=== PATIENT | female | born 1935 | race Caucasian/White ===

== ENCOUNTER 2017-08-05 06:29 | Inpatient (IN) | payer MEDICARE, SELFPAY ==
[2017-07-19 09:26] VITALS: BP 123/77; PULSE 86; RESP 17; TEMP 36.4; O2SAT 96; BMI 28.5
--- NOTE | 2017-07-19 09:49 | SDCEKG_ITS ---
Test Reason : Blood Pressure : / mmHG Vent. Rate : 063 BPM Atrial Rate : 063 BPM P-R Int : 142 ms QRS Dur : 072 ms QT Int : 394 ms P-R-T Axes : 000 002 040 degrees QTc Int : 403 ms Normal sinus rhythm Normal ECG Confirmed by SUZIE APN, SHUN ([id number]), newspaper photo editor YASMIN MOTLEY ([id number]) on 07/22/2017 12:58:14 PM Referred By: [facility] Confirmed By:SHUN LARSEN MD
[2017-07-19 10:28] LABS: Hemoglobin 14.7 g/dl (12.0-15.0); Mean Corp Hgb Conc 32.7 g/gl (32-36); Mean Corpuscular Hgb 31.2 pg (27.0-32.0); Mean Corpuscular Volume 95.5 fL (81-99); Mean Platelet Vol. 9.5 fl (6.2-12.0); Platelet Count 274 K/mm3 (150-450); RBC Distribution Width CV 13.5 % (11.6-14.6); Red Blood Count 4.71 M/mm3 (4.2-5.4); White Blood Count 7.8 K/mm3 (4.4-11.0)
[2017-07-19 10:32] LABS: Scan Indicated on CBC? Y/N NO
[2017-07-19 10:33] LABS: Prothrombin Time (Protime)PT. 12.7 SECONDS (11.7-14.9)
[2017-07-19 10:34] LABS: Partial Thromboplast Time 39.5 Seconds (24.1-36.2)
[2017-07-19 10:55] LABS: AST(SGOT) 18 U/L (15-37); Alanine Aminotransfer ALT/SGPT 25 U/L (12-78); Albumin, Serum 3.7 g/dL (3.4-5.0); Alkaline Phosphatase 86 U/L (45-117); Anion Gap 4 (5-15); BUN 22 mg/dL (7-18); BUN/Creat Ratio 25.9 RATIO (10-20); Bilirubin, Direct 0.08 mg/dL (0.00-0.30); Calcium,Total 9.3 mg/dL (8.5-10.1); Chloride 106 mmol/L (98-107); Creatinine, Serum 0.85 mg/dL (0.55-1.02); EST Glomerular Filtration Rate 68 mL/min (>60); Est Glom Filt Rate - Afr Amer 83 mL/min (>60); Estimated Creatinine Clearance 38.51 ml/min; Globulin 3.5 g/dL (2.2-4.2); Glucose 60 mg/dL (70-110); Potassium 4.6 mmol/L (3.5-5.1); Protein, Total 7.2 g/dL (6.4-8.2); Sodium Level 140 mmol/L (136-145)
[2017-08-05] VITALS (11 sets, daily range): BP systolic 92–140; BP diastolic 58–81; PULSE 66–96; RESP 16–18; TEMP 36.1–37; O2SAT 92–99; BMI 28.5
[2017-08-05] MEDS: Celecoxib 200 MG Capsule 400 MG PO (07:28)
[2017-08-05] MEDS: Acetaminophen 500 MG Tablet 1000 MG PO ×3 (07:28→22:31)
[2017-08-05] MEDS: oxyCODONE HCl Cr 10 MG Tablet PO (07:28)
--- NOTE | 2017-08-05 09:13 | PCM.OPRPT ---
Report of Operation Date of Procedure: 08/05/17 Pre-Operative Diagnosis: Severe end-stage osteoarthritis right hip Post-Operative Diagnosis: Severe end-stage osteoarthritis right hip Surgery/Procedure Performed:: Total hip arthroplasty right using posterior approach Description of Surgical Findings:: Eburnation of bone, periarticular osteophytes consistent with end-stage osteoarthritis affiliate marketing coordinator: Nav Craig Type of Anesthesia:: Spinal Anesthesiologist: Jorden Perez Special Medications: TXA Specimen's removed: Bone and soft tissue Estimated Blood Loss (mL): 150 Fluids Replaced: See anesthesia report Description of Procedure: Implants: Accolade 2 127? valgus size 3 press-fit, 50 mm acetabulum with appropriate size MDM Surgical indications: Patient has severe end-stage osteoarthritic changes in the right hip. They have failed conservative measures including activity modification, anti-inflammatories, use of assistive devices. This to the point where the pain affects their ability to enjoy life and complete activities of daily living without discomfort. Patient has elected to undergo the above procedure Procedure description: The patient was greeted in the preoperative area the right hip was marked with surgical marker preoperative antibiotics administered. The patient was then taken to or suite in stable condition. Preoperative tranexamic acid was also utilized. Once the patient was placed in the supine position on the operating room table and once adequate anesthesia was obtained they were then placed in the lateral decubitus position with the surgical hip facing the field. All bony prominences were well-padded. A commercial hip position was utilized. The appropriate extremity was then prepped and draped in usual sterile fashion. Ioban was placed on the skin. Surgical timeout was performed and surgery was commenced. Standard posterior approach to the hip was then performed incision was planned and carried out with a #10 blade. Dissection was then carried length of the incision to the IT band which was split proximally and distally. A Charnley retractor was then placed for soft tissue retraction exposing the gluteus medius. The gluteus medius was then extremely poor condition therefore I decided to approach the hip posteriorly as opposed to the anterior lateral approach. The hip was then approached through a posterior approach and dislocated through a posterior capsulectomy. Severe eburnation of bone was noted periarticular osteophytes were identified consistent with severe end-stage osteoarthritis. A femoral osteotomy was then created approximately 1 fingerbreadth above the lesser trochanter. This was measured and placed on the back table. Once this was complete acetabular retractors were placed anteriorly and posteriorly and a 4 mm Steinmann pin was placed anterior superior aspect of the acetabulum for soft tissue retention. Labrum was then removed from the acetabulum exposing the entire cup of the acetabulum. Sequential reaming was then commenced and the acetabulum was medialized and sequentially widened in order to accommodate appropriate size cup. The acetabular cup was then impacted into position to the appropriate depth referencing approximately 30? inversion 45? of inclination. Excellent purchase was obtained. No screws were placed in the cup. MDM metal liner was then impacted into position. The locking mechanism was engaged and confirmed. Attention was then turned to the femoral preparation. The hip was placed in the 90/90 position and a lateralizing box osteotome was utilized. Femoral starting awl was used followed by sequential broaching to the appropriate size. Excellent purchase was obtained with the stem no stem subsidence and excellent rotational stability was confirmed. A calcar reamer was then used in the trial head neck was placed on the broach. The hip was then located and taken through full range of motion flexion internal and external rotation as well as extension. Excellent stability was noted no impingement was identified of the components and leg lengths appear to be appropriate. The hip was at this point dislocated and the trial femoral components were removed. The final femoral stem was then implanted and impacted to the appropriate depth. Again excellent purchase was obtained no stem subsidence or rotational instability was noted. The hip was once again trialed and confirmation of leg length and stability was performed. Soft tissue tension also appeared to be appropriate. At this point the hip was redislocated and the trunnion was cleaned and dried meticulously in the appropriate size femoral head was placed on the clean dry trunnion using a 12/14 Tucker taper. The hip was once again relocated and again taken through full range of motion. I did inject a cocktail of postoperative pain medication in the deep and superficial tissues. The wound was then copiously irrigated. Anatomic closure of the piriformis was performed with #1 Vicryl [id number] type fashion followed by closure of the IT band with #1 Vicryl 0 Vicryl was utilized in subcutaneous tissue and surgical skyler were placed in the skin. A well-padded nonadherent dressing was applied. Patient was taken to PACU in stable condition. No complications were identified. Will follow standard postop protocol for total hip arthroplasty. Patient must use assistive device for ambulation for approximately 6 weeks of the gluteal musculature heals. Physician print shop assistant was integral in all portions of this procedure. They assisted with positioning the patient, draping the extremity, holding retractors, closing the wound, and applying the dressing. This was all done under my direct supervision. The physician print shop assistant was essential for a successful, efficient surgery. - Complications none known - Admit VTE Documentation VTE Present on Admission: Yes VTE Mechan Device Prophylaxis: SCD's, Thigh High RONEN Hose VTE Pharm Prophylaxis ordered?: Yes
--- NOTE | 2017-08-05 09:16 | OP.PCM_ITS ---
Report of Operation Date of Procedure: 08/05/17 Pre-Operative Diagnosis: Severe end-stage osteoarthritis right hip Post-Operative Diagnosis: Severe end-stage osteoarthritis right hip Surgery/Procedure Performed:: Total hip arthroplasty right using posterior approach Description of Surgical Findings:: Eburnation of bone, periarticular osteophytes consistent with end-stage osteoarthritis service desk specialist: Nav Craig Type of Anesthesia:: Spinal Anesthesiologist: Jorden Perez Special Medications: TXA Specimen's removed: Bone and soft tissue Estimated Blood Loss (mL): 150 Fluids Replaced: See anesthesia report Description of Procedure: Implants: Accolade 2 127? valgus size 3 press-fit, 50 mm acetabulum with appropriate size MDM Surgical indications: Patient has severe end-stage osteoarthritic changes in the right hip. They have failed conservative measures including activity modification, anti-inflammatories, use of assistive devices. This to the point where the pain affects their ability to enjoy life and complete activities of daily living without discomfort. Patient has elected to undergo the above procedure Procedure description: The patient was greeted in the preoperative area the right hip was marked with surgical marker preoperative antibiotics administered. The patient was then taken to or suite in stable condition. Preoperative tranexamic acid was also utilized. Once the patient was placed in the supine position on the operating room table and once adequate anesthesia was obtained they were then placed in the lateral decubitus position with the surgical hip facing the field. All bony prominences were well-padded. A commercial hip position was utilized. The appropriate extremity was then prepped and draped in usual sterile fashion. Ioban was placed on the skin. Surgical timeout was performed and surgery was commenced. Standard posterior approach to the hip was then performed incision was planned and carried out with a #10 blade. Dissection was then carried length of the incision to the IT band which was split proximally and distally. A Charnley retractor was then placed for soft tissue retraction exposing the gluteus medius. The gluteus medius was then extremely poor condition therefore I decided to approach the hip posteriorly as opposed to the anterior lateral approach. The hip was then approached through a posterior approach and dislocated through a posterior capsulectomy. Severe eburnation of bone was noted periarticular osteophytes were identified consistent with severe end-stage osteoarthritis. A femoral osteotomy was then created approximately 1 fingerbreadth above the lesser trochanter. This was measured and placed on the back table. Once this was complete acetabular retractors were placed anteriorly and posteriorly and a 4 mm Steinmann pin was placed anterior superior aspect of the acetabulum for soft tissue retention. Labrum was then removed from the acetabulum exposing the entire cup of the acetabulum. Sequential reaming was then commenced and the acetabulum was medialized and sequentially widened in order to accommodate appropriate size cup. The acetabular cup was then impacted into position to the appropriate depth referencing approximately 30? inversion 45? of inclination. Excellent purchase was obtained. No screws were placed in the cup. MDM metal liner was then impacted into position. The locking mechanism was engaged and confirmed. Attention was then turned to the femoral preparation. The hip was placed in the 90/90 position and a lateralizing box osteotome was utilized. Femoral starting awl was used followed by sequential broaching to the appropriate size. Excellent purchase was obtained with the stem no stem subsidence and excellent rotational stability was confirmed. A calcar reamer was then used in the trial head neck was placed on the broach. The hip was then located and taken through full range of motion flexion internal and external rotation as well as extension. Excellent stability was noted no impingement was identified of the components and leg lengths appear to be appropriate. The hip was at this point dislocated and the trial femoral components were removed. The final femoral stem was then implanted and impacted to the appropriate depth. Again excellent purchase was obtained no stem subsidence or rotational instability was noted. The hip was once again trialed and confirmation of leg length and stability was performed. Soft tissue tension also appeared to be appropriate. At this point the hip was redislocated and the trunnion was cleaned and dried meticulously in the appropriate size femoral head was placed on the clean dry trunnion using a 12/14 Tucker taper. The hip was once again relocated and again taken through full range of motion. I did inject a cocktail of postoperative pain medication in the deep and superficial tissues. The wound was then copiously irrigated. Anatomic closure of the piriformis was performed with #1 Vicryl [id number] type fashion followed by closure of the IT band with #1 Vicryl 0 Vicryl was utilized in subcutaneous tissue and surgical skyler were placed in the skin. A well-padded nonadherent dressing was applied. Patient was taken to PACU in stable condition. No complications were identified. Will follow standard postop protocol for total hip arthroplasty. Patient must use assistive device for ambulation for approximately 6 weeks of the gluteal musculature heals. Physician clinical assistant professor was integral in all portions of this procedure. They assisted with positioning the patient, draping the extremity, holding retractors , closing the wound, and applying the dressing. This was all done under my direct supervision. The physician clinical assistant professor was essential for a successful, efficient surgery. - Complications none known - Admit VTE Documentation VTE Present on Admission: Yes VTE Mechan Device Prophylaxis: SCD's, Thigh High RONEN Hose VTE Pharm Prophylaxis ordered?: Yes
[2017-08-05] MEDS: Cefazolin 2 GM in 0.9% Normal Saline 100 ML IV (09:17)
--- NOTE | 2017-08-05 11:00 | RAD_ITS ---
STUDY: X-RAY - PELVIS AND RIGHT HIP REASON FOR EXAM: Female, 82 years old. Total hip replacement TECHNIQUE: Radiological exam, hip, unilateral, with pelvis when performed; 1 view COMPARISON: None. FINDINGS: The patient is status post right total hip replacement. There is good alignment. Postoperative soft tissue changes. RAD/Hip 1 view with Pelvis IMPRESSION: Status post right total hip replacement. There is good alignment. Postoperative soft tissue changes. Electronically Signed: Rupesh Benson MD at 11:27 EST Tel [phone], Service support ,
[2017-08-05] MEDS: Lactated Ringers 1,000 ML 125 ML IV ×2 (11:15→20:27)
[2017-08-05] MEDS: Aspirin 325 MG Tablet PO (17:56)
[2017-08-05] MEDS: Cefazolin 1 GM/50 ML BAG IV (17:58)
[2017-08-05] MEDS: Senna/Docusate Sodium 1 Tablet 2 TABLET PO (22:31)
[2017-08-05] MEDS: Atorvastatin Calcium 10 MG Tablet 5 MG PO (22:32)
[2017-08-05] MEDS: Latanoprost 0.005% 1 Bottle 1 DRP EACH EYE (22:33)
[2017-08-06] MEDS: Cefazolin 1 GM/50 ML BAG IV (00:57)
[2017-08-06 03:00] VITALS: BP 93/59; PULSE 77; RESP 16; TEMP 36.9; O2SAT 96
[2017-08-06] MEDS: Lactated Ringers 1,000 ML 125 ML IV (05:45)
[2017-08-06] MEDS: Acetaminophen 500 MG Tablet 1000 MG PO ×3 (06:41→23:02)
[2017-08-06 07:02] LABS: Hematocrit 34.6 % (37-47); Hemoglobin 11.4 g/dl (12.0-15.0); Mean Corp Hgb Conc 32.9 g/gl (32-36); Mean Corpuscular Hgb 31.6 pg (27.0-32.0); Mean Corpuscular Volume 95.8 fL (81-99); Mean Platelet Vol. 9.6 fl (6.2-12.0); Platelet Count 240 K/mm3 (150-450); RBC Distribution Width CV 13.6 % (11.6-14.6); RBC Distribution Width SD 45.5 fl (35.1-43.9); Red Blood Count 3.61 M/mm3 (4.2-5.4)
[2017-08-06 07:09] LABS: Scan Indicated on CBC? Y/N NO
[2017-08-06 07:28] LABS: Anion Gap 8 (5-15); BUN 16 mg/dL (7-18); BUN/Creat Ratio 24.5 RATIO (10-20); Calcium,Total 8.3 mg/dL (8.5-10.1); Chloride 108 mmol/L (98-107); Creatinine, Serum 0.65 mg/dL (0.55-1.02); EST Glomerular Filtration Rate 92 mL/min (>60); Est Glom Filt Rate - Afr Amer 112 mL/min (>60); Estimated Creatinine Clearance 32.73 ml/min; Glucose 111 mg/dL (70-110); Sodium Level 144 mmol/L (136-145)
[2017-08-06] MEDS: Aspirin 325 MG Tablet PO ×2 (07:38→17:22)
[2017-08-06] MEDS: Calcium Carb/Vitamin D 1 TABLET Tablet PO (07:39)
--- NOTE | 2017-08-06 07:54 | PCM.PN.ORT ---
Subjective: Patient sitting at bedside eating breakfast, pain well-managed. Patient feels she is doing very well. No complaints, denies chest pain, shortness breath, calf pain, nausea vomiting. Objective: Dressing is clean dry intact. Vital signs labs within normal limits. Patient is afebrile, neurovascular is intact. Negative signs and symptoms of DVT - Physical Exam General: Alert, Oriented x3, Cooperative HEENT: PERRLA Oral: Moist Mucosa Neurological: Cranial nerves II-XII grossly intact Psych/Mental Status: Normal Affect, Alert and oriented to time, place, person, mood and affect Vital Signs Temp Pulse Resp BP Pulse Ox 98.4 F 77 16 93/59 L 96 08/06/17 03:00 08/06/17 03:00 08/06/17 03:00 08/06/17 03:00 08/06/17 03:00 Oxygen Delivery Method Room Air Weight: 68.6 kg Body Mass Index (BMI) 28.5 Intake and Output for Last 24 Hours 08/04/17 08/05/17 08/06/17 23:59 23:59 23:59 Intake Total 3443 / 3443 2239 / 2239 Balance 3443 / 3443 2239 / 2239 Laboratory Tests Past 24 Hrs 08/06/17 08/06/17 06:28 06:28 WBC 12.0 H RBC 3.61 L Hgb 11.4 L Hct 34.6 L MCV 95.8 MCH 31.6 MCHC 32.9 RDW 13.6 RDW Differential 45.5 H Plt Count 240 MPV 9.6 Sodium 144 Potassium 4.0 Chloride 108 H Carbon Dioxide 28.0 Anion Gap 8 BUN 16 Creatinine 0.65 Estim Creat Clear Calc 32.73 Est GFR (MDRD) Af Amer 112 Est GFR (MDRD) Non-Af 92 BUN/Creatinine Ratio 24.5 H Glucose 111 H Calcium 8.3 L Assessment/Plan Status post right total hip arthroplasty Plan 1. Continue all pain medications as prescribed 2. Begin physical therapy today, weight-bear as tolerated with walker 3. Aspirin 325 mg 1 p.o. every 12 hours ?30 days for postop DVT prophylaxis 4. Encourage incentive spirometry 5. Possible discharge home tomorrow
[2017-08-06 08:02] VITALS: BP 95/58; PULSE 79; RESP 16; TEMP 36.4; O2SAT 97
[2017-08-06] MEDS: Famotidine 20 MG Tablet PO (10:23)
[2017-08-06] MEDS: Psyllium 1 PACKET PO (10:23)
[2017-08-06 14:27] VITALS: BP 105/61; PULSE 68; RESP 18; TEMP 36.7; O2SAT 94
[2017-08-06] MEDS: oxyCODONE 5 MG Tablet PO (14:34)
--- NOTE | 2017-08-06 15:55 | CASEMGMT ---
SHANNAN RUVALCABA Face to Face with patient for initial transition planning/care coordination assessment. SHANNAN RUVALCABA introduced self and role at [facility]. Patient lying in bed, alert and oriented. Patient willing to participate in assessment and is able to answer all questions appropriately. Care providers, pharmacy, and demographics verified. See link attached. Patient wishes to discharge home with outpatient set up at [facility]. Patient states her and daughter will be providing transportation. Patient states she has no further needs or concerns at this time. CM to follow for discharge planning needs that may arise. Disposition Plan: Patient to discharge home with outpatient therapy, family support, and follow-up plans and place.
[2017-08-06 17:28] VITALS: BP 104/62; PULSE 74; RESP 16; TEMP 36.6; O2SAT 97
[2017-08-06 20:42] VITALS: BP 114/61; PULSE 72; RESP 16; TEMP 36.9; O2SAT 98
[2017-08-06] MEDS: Latanoprost 0.005% 1 Bottle 1 DRP EACH EYE (23:01)
[2017-08-06] MEDS: Senna/Docusate Sodium 1 Tablet 2 TABLET PO (23:01)
[2017-08-06] MEDS: Atorvastatin Calcium 10 MG Tablet 5 MG PO (23:02)
[2017-08-07 03:11] VITALS: BP 104/59; PULSE 90; RESP 14; TEMP 37.2; O2SAT 95
[2017-08-07 06:24] LABS: Hematocrit 36.7 % (37-47); Hemoglobin 11.9 g/dl (12.0-15.0); Mean Corp Hgb Conc 32.4 g/gl (32-36); Mean Corpuscular Hgb 31.6 pg (27.0-32.0); Mean Corpuscular Volume 97.3 fL (81-99); Mean Platelet Vol. 9.8 fl (6.2-12.0); Platelet Count 230 K/mm3 (150-450); RBC Distribution Width SD 47.8 fl (35.1-43.9); Red Blood Count 3.77 M/mm3 (4.2-5.4); White Blood Count 9.6 K/mm3 (4.4-11.0)
[2017-08-07] MEDS: Acetaminophen 500 MG Tablet 1000 MG PO ×2 (06:28→13:24)
[2017-08-07 06:30] LABS: Scan Indicated on CBC? Y/N NO
[2017-08-07] MEDS: oxyCODONE 5 MG Tablet PO ×2 (07:36→13:23)
[2017-08-07] MEDS: Aspirin 325 MG Tablet PO (07:37)
[2017-08-07] MEDS: Calcium Carb/Vitamin D 1 TABLET Tablet PO (07:37)
[2017-08-07 07:40] VITALS: BP 127/80; PULSE 78; RESP 16; TEMP 36.9; O2SAT 96
[2017-08-07] MEDS: Psyllium 1 PACKET PO (10:13)
[2017-08-07] MEDS: Famotidine 20 MG Tablet PO (10:14)
--- NOTE | 2017-08-07 12:31 | PN.ORTHO_ITS ---
Subjective: Patient sitting at lunch, her at her side. Patient states she is doing very well, pain well-managed. Ready for discharge home. No other complaints. Denies chest pain, shortness breath, calf pain, nausea vomiting. Objective: Dressing is clean dry intact, vital signs labs within normal limits. Patient is afebrile, neurovascular intact. Negative signs and symptoms of DVT. - Physical Exam General: Alert, Oriented x3, Cooperative HEENT: PERRLA Neurological: Cranial nerves II-XII grossly intact Psych/Mental Status: Normal Affect, Alert and oriented to time, place, person, mood and affect Vital Signs Temp Pulse Resp BP Pulse Ox 98.4 F 78 16 127/80 H 96 08/07/17 07:40 08/07/17 07:40 08/07/17 07:40 08/07/17 07:40 08/07/17 07:40 Oxygen Delivery Method Room Air Weight: 68.6 kg Body Mass Index (BMI) 28.5 Intake and Output for Last 24 Hours 08/05/17 08/06/17 08/07/17 23:59 23:59 23:59 Intake Total 3443 / 3443 3114 / 3114 500 / 500 Balance 3443 / 3443 3114 / 3114 500 / 500 Laboratory Tests Past 24 Hrs 08/07/17 05:34 WBC 9.6 RBC 3.77 L Hgb 11.9 L Hct 36.7 L MCV 97.3 MCH 31.6 MCHC 32.4 RDW 14.0 RDW Differential 47.8 H Plt Count 230 MPV 9.8 Assessment/Plan Status post right total hip arthroplasty Plan 1. Continue all pain medications as prescribed 2. Continue physical therapy at [facility] [place] , weight-bear as tolerated with walker 3. Aspirin 325 mg 1 p.o. every 12 hours ?30 days for postop DVT prophylaxis 4. Follow-up as scheduled, see pink sheet 5. Discharge home today
--- NOTE | 2017-08-07 12:48 | PCM.DC.THR ---
Discharge Diet: No Restrictions Discharge Activity: May Drive, May Shower, Use Walker May shower in (days): 1 - only if incision is dry and without drainage. Do NOT soak/submerge in tub/pool/barron/stream/hot tub. May resume sexual activity in: No Restrictions Ice area for (Minutes): 20 - every hour while awake Weight Bearing Status: Weight bearing as tolerated Lifting Restrictions: 20 pounds Elevate: Operative Extremity Call your doctor if your incision/area has: Continuous Slow Oozing, Sudden Increased Bleeding, Increased Pain/ Swelling, Increased Redness, Foul Smelling Discharge Call your doctor if you observe: Fever of 101 or Higher, Inability to urinate, Inability to have a bowel movement, Shortness of breath, Fainting spells, Chest pain, Increased palpitations (irregular heartbeat), Calf discomfort, Uncontrolled pain Change Dressing in (Days):: 0 - Change daily and as needed. Remove Dressing in (days):: 9 Cleanse incision/area with: Soap & Water Allergies/Adverse Reactions: Allergies hydrocodone [From Vicodin] Adverse Reaction (Verified 07/19/17 09:15) Vomiting Medications to take at Discharge Antiarthritic Combination No.2 [Glucosamine-Chondroitin] 900 mg PO DAILY 07/19/17 Bimatoprost [Lumigan Opthalmic] 1 drop EACH EYE QHS 07/19/17 Calcium Carbonate/Vitamin D3 [Calcium 250-Vit D3 125 Tablet] 1 each PO DAILY 07/19/17 Psyllium Husk [Metamucil] 660 gm PO DAILY 07/19/17 Simvastatin 5 mg PO QHS 07/19/17 Acetaminophen [Tylenol] 1,000 mg PO Q8 tablet 08/07/17 Aspirin 325 mg PO BIDCM tablet 08/07/17 Oxycodone [Oxyir] 5 - 10 mg PO Q4H PRN PRN 5 Days #60 tab 08/07/17 The following prescriptions were given: Oxycodone [Oxyir] 5 - 10 mg PO Q4H PRN PRN 5 Days #60 tab PRN Reason: Mod-Severe Pain (-04/16) Primary Care Physician: Mechelle Head MD [Primary Care Provider] - Please Follow Up With: Madhav Driver, DO When: see pink sheet
[2017-08-07 13:16] VITALS: BP 128/69; PULSE 90; RESP 18; TEMP 37.2; O2SAT 95
== END 2017-08-07 14:38 | disposition home or self-care (01) | DRG 470 ==
PROVIDERS: Anesthesiology; Admitting Provider Orthopaedic Surgery; Family Provider Family Medicine; PCP Family Medicine; Visit Provider Orthopaedic Surgery
PROC: 0SR90JZ Replacement of Right Hip Joint with Synthetic Substitute, Open Approach (ICD-10-PCS; CPT 27130; principal; 2017-08-05 08:20)
DX: M16.11 Unilateral primary osteoarthritis, right hip (principal); M25.751 Osteophyte, right hip
CPT/HCPCS: 36415; 73501; 80048; 80076; 85027; 85610; 85730; 87081; 97110; 97116; 97162; 97165; 97530; 97535; J7120

== ENCOUNTER 2018-01-02 14:30 | Outpatient (RCR) | payer MEDICARE, SELFPAY ==
--- NOTE | 2017-12-06 14:50 | HP.PTEVAL_ITS ---
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 Date of Evaluation: 12/06/17 Physical Therapist: Fantasma Pinzon, PT, - Visit Plan Frequency: 2x /Week Duration: 4 Weeks Plan: S/P THR POSTERIOR APROACH Jul AND2 1/2 MONTHS OF PT. FOUCUS ON BALANCE TRAINING,PRE ;HIP/KNEE ,FUNCTIONAL STRENGTHENING - Subjective Subjective: This 82 y/o female presenst to physical therapy right GINO posterior approach on Aug 05 at [facility] done by DR Driver.Patient d/c 2 days later with FWW WBAT RLE. Patient started PT for about 2 1/2 months. Patient weaned to cane then no device. Patient concerns walking with limp ,weakness .Patient has limiations with outside yard work ,and housework tasks -cleaning. Denies parathesia/tingling .Patient doing steps aternating with rail.Patient sleeping okay. HOME SITUATION: 2 story home with 2 steps and 12 steps 2nd floor. SOCAIL : . VOCATION: - Objective POSTURE: mild foward posture. GAIT: ambulates with normal rimma mild decrease stance time right reciprocal pattern. NEURO: denies parathesia/ tingling,reflexes intact. BALANCE: good-. AROM: 90 degrees hip flexion ,abd 40 degrees,knee flexion 0-125 degrees. MMT: quads/hams 4/5,hip abd 3/5 right , ankle 4/5. STAIRS : ascend/desceend 12 steps with rail. SLS-POOR - Goals Goal 1:: Independant with high level of functional ex's Goal Time Frame: 4-6 Weeks Goal 2:: Ambulate with normal stance reciprocal pattern during gait. Goal Time Frame: 4-6 Weeks Goal 3:: Normal balance on level/unlevel surfaces Goal Time Frame: 4-6 Weeks Goal 4:: Patient to increase strength of right hipo 3+/5-4-/5 to improve function and gait Goal Time Frame: 4-6 Weeks Goal 5:: Patient ascend/descend 12 steps with no rail to carry laundry basket Goal Time Frame: 4-6 Weeks - Rehabilitation Potential Physical Therapy Diagnosis: Patient underwent s/p right THR Aug 05 with impairments of right THR with impairments steps with rail ,quality of gait with limp,balance and weakness right gluteus medius thus benifit from PT Rehabilitation Potential: Good - Anticipated Interventions Patient/Client Instruction: Educate patient on: Condition, Plan of Care For the Purpose of:: To decrease pain, To improve muscle performance and motor function, To improve ability to perform ADL's, To increase tolerance to activity /condition/position, To improve performance and independence with ADL's, To improve ability of physical actions for home/community/work/leisure, To improve health of tissue, To improve endurance, To improve balance, To improve safety with gait, To improve ability to perform tasks related to life management Therapeutic Exercise to Include: Strength training, Endurance training, Balance training, Flexibilty training, Gait and locomotor training For the Purpose of:: To decrease pain, To improve ability to perform ADL's, To increase tolerance to activity/condition/position, To improve ability of physical actions for home/community/work/leisure, To improve gait and locomotor functions, To improve health of tissue, To improve endurance, To improve balance , To improve ability to perform tasks related to life management Thank you for the opportunity to evaluate your patient. For Medicare and Medicare HMO plans, please review the plan of care and approve it. It will need to be FAXED BACK to us at [phone] for Medicare purposes. Please let me know if there are questions or concerns regarding this plan of care. Physician Signature: Date:
--- NOTE | 2018-01-02 16:28 | HP.PTDCSUM_ITS ---
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 Discharge Date: 01/02/18 Please see the following information for a summary of their discharge status. - Subjective Subjective: Pt denies pain prior to the session. Overall, she feels that she plateued and has not made much, if any, progress with this bout of therapy. 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 - Overall Improvement % Improvement: 50 - Objective Objective/Function: Pt has met 5/5 PT goals. She does not report much, if any, improvement since starting this bout of physical therapy. She still has deficits with her hip abduction and extension weakness and hip flexor flexibility. Her HEP was updated today to address these impairments. She was given the option to continue coming to the facility through the wellness program. - Goals Goal 1:: Independant with high level of functional ex's Goal Progress: Goal Met Goal 2:: Ambulate with normal stance reciprocal pattern during gait. Goal Progress: Goal Met Goal 3:: Normal balance on level/unlevel surfaces Goal Progress: Goal Met Goal 4:: Patient to increase strength of right hipo 3+/5-4-/5 to improve function and gait Goal Progress: Goal Met Goal 5:: Patient ascend/descend 12 steps with no rail to carry laundry basket Goal Progress: Goal Met - Plan Plan: Discharge with HEP and plan to join a wellness program. - D/C Information Discharge Comments: Pt has met 5/5 PT goals. She does not report much, if any, improvement since starting this bout of physical therapy. She still has deficits with her hip abduction and extension weakness and hip flexor flexibility. Her HEP was updated today to address these impairments. She was given the option to continue coming to the facility through the wellness program. If there are questions or concerns regarding this patient's physical therapy, please feel free to call me at [phone]. Thank you for the referral of this patient. Sincerely, Fantasma Pinzon, PT,
== END 2018-01-02 19:00 | disposition home or self-care (01) ==
LOC: PT 14:30
PROVIDERS: Family Provider Family Medicine; PCP Family Medicine; Visit Provider Orthopaedic Surgery
DX: Z47.1 Aftercare following joint replacement surgery (principal); Z96.641 Presence of right artificial hip joint
CPT/HCPCS: 97110; 97162; 97530; G8978; G8979

== ENCOUNTER 2019-04-09 15:28 | Emergency (ER) | payer MEDICARE, SELFPAY ==
[2019-04-09 15:29] VITALS: BP 142/83; PULSE 90; RESP 16; TEMP 36.7; O2SAT 98; BMI 27.5
[2019-04-09 16:24] LABS: Absolute Lymphocyte Count 1.75 X10^3/uL (0.83-4.51); Basophil# 0.03 X10^3/uL; Basophil% 0.3 % (0-1); Eosinophil# 0.21 X10^3/uL; Eosinophils% 2.3 % (0-5); Hematocrit 44.3 % (37-47); Hemoglobin 14.8 g/dL (12.0-15.0); Lymphocyte # 1.75 X10^3/ul (4.0); Lymphocyte % 19.6 % (19-41); Mean Corp Hgb Conc 33.4 g/dL (32-36); Mean Corpuscular Volume 92.7 fL (81-99); Monocyte# 0.98 X10^3/uL; NRBC Flagged by Analyzer 0 % (0-5); Neutrophil # 5.95 X10^3/uL (2.7-7.7); Neutrophil % 66.6 % (47-70); Platelet Count 237 K/mm3 (150-450); RBC Distribution Width CV 12.5 % (11.6-14.6); RBC Distribution Width SD 42.9 fl (35.1-43.9); Red Blood Count 4.78 M/mm3 (4.2-5.4); White Blood Count 8.9 K/mm3 (4.4-11.0)
--- NOTE | 2019-04-09 16:30 | ED.VIS.GEN ---
History of Present Illness Chief Complaint: GI Bleed Narrative: Patient presenting for evaluation due to dark-colored stools. Patient reports that on Saturday of this week she developed diarrhea. She reports that it was loose and watery, and went on throughout the course of the morning. In the afternoon she states that she took some Pepto-Bismol hollowed by Imodium. After taking Pepto-Bismol she states that she had change in color of her stools to black. She reports that she has had 6-8 black stools since then, most recent one was about 12:00 today. Patient is not on any sort of anticoagulants, just antiplatelets which is aspirin. She denies any chest pain shortness of breath lightheadedness exertional dyspnea. Patient denies that she is had any sort of bright red blood. She has had colonoscopy in the past, most recent about 3 years ago that showed diverticulosis and some rectal prolapse. Patient reports that she called her primary care office and they recommended that she come to the emergency department. Past Medical History - Allergies and Home Meds Allergies/Adverse Reactions: Allergies hydrocodone [From Vicodin] Adverse Reaction (Verified 04/09/19 15:31) Vomiting Primary Care Physician: Hudson Clarke MD [Primary Care Provider] - Past Medical History: - - Hyperlipidemia Smoking Status: Never smoker Review of Systems All systems negative except as indicated Gastrointestinal: Reports: Diarrhea, Melena Physical Exam Vital Signs/Narrative: Vital Signs Temp Pulse Resp BP Pulse Ox 04/09/19 15:29 98.1 F 90 16 142/83 H 98 Inital Vital Signs reviewed: Yes General: Well nourished, Well developed, No Acute Distress Head: Normocephalic, Atraumatic Eyes: Perrl, EOMI. Negative for: Pale conjunctiva ENT: Moist mucous membranes, No rhinorrhea Neck: Supple, Nontender Cardiovascular: Regular rate, Regular rhythm, No murmurs Respiratory: No distress, CTA bilaterally, Chest nontender Abdomen: Soft, Nontender, Nondistended, Normal bowel sounds Rectal: Deferred - Patient was seen in a bed in the hallway Back: Nontender, Normal Inspection Extremities: Nontender, No edema Skin: Normal color, No rash Neurological: Alert, Oriented x3, Cranial nerves II-XII grossly intact, Normal Strength, Normal Sensation Psychological: Normal affect, Normal Mood Diagnostic/Tx/Re-eval - Medical Decision Making Patient presented for evaluation secondary to dark tarry stools. Patient reports that she is not on any sort of anticoagulants. CBC was obtained shows a stable hemoglobin of 14. Patient's dark-colored stool started directly after she took Pepto-Bismol. This likely is the cause, but regardless if she does have a GI bleed at this time it is stable with her having normal vital signs, stable hemoglobin, and no signs of symptomatic anemia. Patient was given signs and symptoms which return, she was recommended that should this persist she will need to follow-up with the general surgeon who performed her last colonoscopy, Dr. Clarke. Patient voiced understanding of this and was discharged in stable condition. ED Disposition - Plan for ED Patient: Disposition: Home or Assisted Living Diagnosis: Diarrhea Instructions: RECTAL BLEED, Stable Referrals: Hudson Clarke MD [Primary Care Provider] - (Followup if you continue to have black stools after 3 more days.)
[2019-04-09 16:32] LABS: Anion Gap 5 (5-15); BUN 15 mg/dL (7-18); BUN/Creat Ratio 17.5 RATIO (10-20); Calcium,Total 9.1 mg/dL (8.5-10.1); Chloride 106 mmol/L (98-107); Creatinine, Serum 0.86 mg/dL (0.55-1.02); EST Glomerular Filtration Rate 67 mL/min (>60); Est Glom Filt Rate - Afr Amer 81 mL/min (>60); Glucose 110 mg/dL (74-106); Potassium 3.8 mmol/L (3.5-5.1); Sodium Level 135 mmol/L (136-145)
== END 2019-04-09 16:55 | disposition home or self-care (01) ==
PROVIDERS: Emergency Provider Emergency Medicine; Family Provider Family Medicine; PCP Family Medicine
DX: R19.7 Diarrhea, unspecified (principal); K62.5 Hemorrhage of anus and rectum; E78.5 Hyperlipidemia, unspecified; Z79.82 Long term (current) use of aspirin; Z79.899 Other long term (current) drug therapy
CPT/HCPCS: 80048; 85025; 99282

== ENCOUNTER 2020-09-05 17:20 | Outpatient (RCR) | payer MEDICARE, SELFPAY | END 2020-09-05 23:59 | LOC: IMMUN 17:20 | PROVIDERS: PCP Family Medicine; Referring Provider Family Medicine; Visit Provider Family Medicine | DX: Z23 Encounter for immunization (principal) | CPT/HCPCS: 0011A; 0012A ==

== ENCOUNTER 2021-08-22 07:49 | Day surgery (SDC) | payer MEDICARE, SELFPAY ==
[2021-08-22] VITALS (7 sets, daily range): BP systolic 102–139; BP diastolic 45–65; PULSE 66–89; RESP 16; TEMP 35.9–36.6; O2SAT 95–99; BMI 28.8
--- NOTE | 2021-08-22 08:10 | PCM.HP.BLA ---
History and Physical Date of Admission: 08/22/[address] Hudson Clarke MD on 08/16/21 at 1248 Intake Chief Complaint: Colonoscopy Allergies hydrocodone [From Vicodin] Adverse Reaction (Verified 08/15/21 15:25) Vomiting Medications bimatoprost [Latisse] 1 drp EACH EYE QHS 07/19/17 [History Confirmed 08/15/21] calcium carbonate-vitamin D3 1 ea PO DAILY 07/19/17 [History Confirmed 08/15/21] apixaban 5 mg tablet 5 mg PO BID 08/15/21 [History Confirmed 08/15/21] ascorbic acid (vitamin C) 500 mg tablet 500 mg PO DAILY 08/15/21 [History Confirmed 08/15/21] metoprolol tartrate 25 mg tablet 25 mg PO DAILY 08/15/21 [History Confirmed 08/15/21] multivitamin 1 tab PO DAILY 08/15/21 [History Confirmed 08/15/21] simvastatin 5 mg tablet 10 mg PO QHS tab 08/15/21 [History Confirmed 08/15/21] Assessment and Plan Assessment and Plan (1) Cecum mass: Status: Acute Orders: Orders: Colonoscopy 08/15/21 K63.89 Plan: Information from the [facility] the text that July 18, 2012 I performed a colonoscopy demonstrating a 25 mm polyp of the rectum. On July 21, 2012 I performed a transanal excision of this polyp which detected a tubulovillous adenoma with multifocal high-grade dysplasia. Surgical margins were clear. Hudson Clarke M.D., F.A.C.S. Plan Details Other Orders: Orders: Colonoscopy 08/15/21 R93.5 08/16/21 1248<Electronically signed by Hudson Clarke MD>Date Hudson Clarke MD cc: Dr. Mechelle Mike DO; Dr.Sareena Casanova ~*Signed Intake Vital Signs 08/15/21 15:22 Height 5 ft Weight: 155 lb 6 oz BMI 30.3 BP 130/82 H Blood Pressure Location Rt brachial Position Sitting Respiration 18 Pulse 84 Pulse Source Monitor Temp 96.4 F L Temp Source Temporal Intake Visit Reasons: COLONOSCOPY Chief Complaint: Colonoscopy Accompanied by: Daughter Is patient in pain?: No Allergies hydrocodone [From Vicodin] Adverse Reaction (Verified 08/15/21 15:25) Vomiting Medications bimatoprost [Latisse] 1 drp EACH EYE QHS 07/19/17 [History Confirmed 08/15/21] calcium carbonate-vitamin D3 1 ea PO DAILY 07/19/17 [History Confirmed 08/15/21] apixaban 5 mg tablet 5 mg PO BID 08/15/21 [History Confirmed 08/15/21] ascorbic acid (vitamin C) 500 mg tablet 500 mg PO DAILY 08/15/21 [History Confirmed 08/15/21] metoprolol tartrate 25 mg tablet 25 mg PO DAILY 08/15/21 [History Confirmed 08/15/21] multivitamin 1 tab PO DAILY 08/15/21 [History Confirmed 08/15/21] simvastatin 5 mg tablet 10 mg PO QHS tab 08/15/21 [History Confirmed 08/15/21] PFS Medical History (Updated 08/15/21 @ 15:44 by Sissy Meek) Abnormal CT of the abdomen Arthritis Atrial fibrillation History of ovarian cancer Hx of detention use of blood thinners Surgical History (Updated 08/15/21 @ 15:21 by Ирина Greene) History of appendectomy History of bilateral oophorectomy History of cataract surgery History of colon surgery History of total left hip replacement History of tubal ligation Family History (Updated 08/15/21 @ 15:22 by Ирина Greene) Sister Heart disease Mother Heart disease Brother Cancer Father Cancer stomach Social History (Updated 08/15/21 @ 15:22 by Ирина Greene) Smoking Status: Never smoker alcohol intake: never substance use type: does not use HPI HPI HPI: GREGG REYNA, is a 86 F who presents to the office today for surgical consultation regarding possible colonoscopy. The patient is referred by Dr.Sareena Casanova who on October 20, 2019 performed a examination under anesthesia exploratory laparotomy washings bilateral salpingo-oophorectomy and an omentectomy for her for ovarian cancer. Previously July 21, 2012 because of rectal bleeding I performed a hemorrhoidectomy with transanal excision of a rectal polyp. She previously had a colonoscopy August 14, 2013 showing a tubular adenoma of the descending colon and a rectal polyp biopsy which simply was fragments of colonic mucosa Her most recent colonoscopy was August 10, 2016 where a tubular adenoma was removed from the mid ascending colon. Since that time the patient was diagnosed with ovarian cancer. On October 20, 2019 she underwent an examination under anesthesia exploratory laparotomy washings bilateral salpingo-oophorectomy and omentectomy at [facility]. The patient states that recently she has been feeling well. Diet activity has been normal. No unexpected weight loss. Laboratory suggested elevation of her tumor markers. I do not have those reports. On July 31, 2021 at [facility] in [place] she had a CT scan of the abdomen and pelvis. She also had a chest CT. There was no adenopathy. Marked diverticulosis of the sigmoid without evidence of diverticulitis. At the right colon there is a polypoid intraluminal soft tissue measuring 3.5 cm posterior to the ileocecal valve. This area is felt to be more prominent than previous study which was March 2021. In the midportion of the omentum on the left there is a soft tissue deposit. Superior to this there is an additional omental lesion. These were felt to be similar to previously. There was no ascites.. The chest CT did not show any obvious disease. The patient is being referred for colonoscopy to evaluate the cecal lesion. From reports of the patient and family apparently is not anticipated she will be undergoing additional surgery but perhaps additional chemotherapy. ROS General General: No weight change, appetite, fatigue, colon cancer, breast cancer or weakness HEENT HEENT: No difficulty swallowing, eye injury, eye surgery, swollen glands or hoarseness Endo Endocrine: No thyroid disease, diabetes mellitus, thyroid cancer, Hair loss, heat intolerance or cold intolerance Skin Skin: No rash or changing moles Breast Breast: No left breast lump, right breast lump, nipple discharge, breast pain, abnormal mammogram, abnormal US or breast enlargement Musc Musculoskeletal: Yes arthritis; No back problems, rheumatoid arthritis, gout or joint pain Cardio Cardiovascular: Yes atrial fibrillation; No murmur, pacemaker, heart disease, high blood pressure, heart attack, heart stent, palpitations, shortness of breat with exertion or chest pain Psych Psychiatric: No depression, anxiety or hearing voices Resp Respiratory: No shortness of breath, No sleep apnea, No cough, No COPD, No asthma, No emphysema and No wheezing Gastro Gastrointestinal: No abdominal pain, No nausea or vomiting, No diarrhea, No constipation, No blood in stool, No acid reflux, No hemorrhoids, No ulcers, No gallbladder problem and No black,tarry stools Richie Hematologic: Yes blood thinners, No blood disorders, No bleeding, No anemia and No blood clots Neuro Neurologic: No system reviewed and no additional complaints, except as documented, No as per HPI, No abnormal gait, No abnormal hearing, No abnormal movements, No abnormal speech, No behavioral changes, No burning sensations, No confusion, No convulsions, No disequilibrium, No dizziness, No localized weakness, No frequent falls, No headache(s), No lack of coordination, No loss of vision, No memory loss, No numbness, No other visual disturbances, No radicular pain, No restless legs, No sensory deficit, No syncope, No tingling, No tremor(s), No weakness and No other Exam Const General: cooperative and no acute distress Nutritional Appearance: average body habitus Orientation: alert and awake HENMT Head: normal to inspection Eyes General: appearance normal, both eyes and all related structures Neck Neck: normal visual inspection Resp Effort & Inspection: normal respiratory effort Cardio Rate: regular rate Rhythm: regular rhythm GI Other: Soft, vertical midline incision extending above the umbilicus to the pubis. Incisional hernia at the umbilicus reducible. Nontender, no mass, Skin General: no rashes or lesions noted Neuro General: patient alert and patient awake Extrem General: no calf tenderness Psych Appearance: grossly normal Assessment and Plan Assessment and Plan (1) Cecum mass: Status: Acute Orders: Orders: Colonoscopy Today K63.89 Plan - Dr. Hudson Clarke MD: We will try to expedite the patient's management with a colonoscopy with possible biopsy. The patient is on apixaban therapy and this will need to be held 48 hours preprocedure. Because of her age and risk I am recommending monitored anesthesia care. The patient and her daughter are aware of the technique, benefit, risk and alternatives. No guarantees of success have been offered. Regarding then treatment options it is not immediately clear to me that she would be a candidate for additional surgery and apparently this is not particularly being offered at the moment. The risk of inspection appears to be worth the therapeutic decision making. Copy:Mechelle Mike DO and Dr.Sareena Edilberto Clarke M.D., F.A.C.S. I have re-examined the patient. There are no clinical changes since date of exam.
[2021-08-22] MEDS: Lactated Ringers 1,000 ML 15 ML IV (08:23)
--- NOTE | 2021-08-22 09:00 | COLBX_PTH ---
PATIENT: GREGG REYNA LOC: EN U#:[id number] AGE/SX: 86/F ROOM: RE08/22/[address]: Dr. Hudson Clarke MD : 1935 BED: DIS: 08/22/2021 SPEC #: [id number] RECD: 08/22/21 15:45 STATUS: ASHLEY RAMIREZ #: [id number] YANIV: 08/22/21 09:[address]: Hudson Clarke DEPT: SURGICAL PATHOLOGY RECD BY: Sonja Dang ENTERED: 08/23/21 11:46 SP TYPE: COLON BX OTHR DR: Dr. Mechelle Mike, DO Tissues: A - Cecum, NOS B - Ascending colon C - COLON BIOPSY Procedures: Surgery Specimen Level IV HEADER OPERATION: Colonoscopy (MAC) polypectomy biopsy PRE-OP DIAGNOSIS: Cecum mass TISSUE SUBMITTED: A ? 4 mm polyp cecum biopsy, B ? Proximal ascending polyp biopsy, C ? Hepatic flexure polyp MICROSCOPIC DIAGNOSIS A. Cecum polyp, biopsy: Tubular adenoma. B. Proximal ascending colon polyp, biopsy: Fragments of hyperplastic polyp. C. Hepatic flexure polyp, biopsy: Fragments of tubular adenoma. Fragments of hyperplastic polyp. SJ:mariann 08/24/2021 MICROSCOPIC DESCRIPTION Slides are reviewed. GROSS DESCRIPTION A - Received in fixative is one container labeled with the patient's name and designated cecal polyp biopsy. The specimen consists of one irregular fragment of light perea soft tissue that measures 0.3 x 0.2 x 0.1 cm. The specimen is totally submitted in one cassette. B - Received in fixative is one container labeled with the patient's name and designated proximal ascending polyp biopsy. The specimen consists of multiple irregular fragments of light perea soft tissue that in aggregate measure 2 x 1 x 0.1 cm. The specimen is totally submitted in one cassette. C - Received in fixative is one container labeled with the patient's name and designated hepatic flexure polyp. The specimen consists of multiple irregular fragments of light perea soft tissue that in aggregate measure 2 x 1 x 0.2 cm. The specimen is totally submitted in one cassette. / AM:mariann 08/23/2021 TC:3 CPT: 12398 x3
--- NOTE | 2021-08-22 10:27 | OP.COLON_ITS ---
Patient Name: Maritza Sanchez Procedure Date: 08/22/2021 9:36 AM Date of : 1935 Age: 86 Procedure: Colonoscopy Indications: Abnormal CT of the GI tract Providers: Hudson Clarke MD Medicines: See the Anesthesia note for documentation of the administered medications Patient Profile: Last Colonoscopy: 2016. Complications: No immediate complications. Procedure: Pre-Anesthesia Assessment: - Prior to the procedure, a History and Physical was performed, and patient medications and allergies were reviewed. The patient's tolerance of previous anesthesia was also reviewed. The risks and benefits of the procedure and the sedation options and risks were discussed with the patient. All questions were answered, and informed consent was obtained. Prior Anticoagulants: The patient has taken Eliquis (apixaban), last dose was 2 days prior to procedure. ASA Grade Assessment: III - A patient with severe systemic disease. After reviewing the risks and benefits, the patient was deemed in satisfactory condition to undergo the procedure. After I obtained informed consent, the scope was passed under direct vision. Throughout the procedure, the patient's blood pressure, pulse, and oxygen saturations were monitored continuously. The colonoscope was introduced through the anus and advanced to the cecum, identified by appendiceal orifice and ileocecal valve. The colonoscopy was somewhat difficult due to poor bowel prep. The patient tolerated the procedure well. The quality of the bowel preparation was poor. The ileocecal valve and the appendiceal orifice were photographed. Scope In: 9:41:30 AM Scope Withdrawal Time 0 hours 30 minutes 47 seconds Scope Out: 10:21:17 AM Total Procedure Duration Time 0 hours 39 minutes 47 seconds Findings: Hemorrhoids were found on perianal exam. A 22 mm polyp was found in the proximal ascending colon. The polyp was sessile. The polyp was removed with a cold biopsy forceps. Polyp resection was incomplete, and the resected tissue was partially retrieved. To prevent bleeding post-intervention, one hemostatic clip was successfully placed. There was no bleeding at the end of the procedure. A 12 mm polyp was found in the hepatic flexure. The polyp was sessile. The polyp was removed with a saline injection-lift technique using a hot snare. Resection and retrieval were complete. To prevent bleeding post-intervention, one hemostatic clip was successfully placed. There was no bleeding at the end of the procedure. Multiple diverticula were found in the sigmoid colon and descending colon. Impression: - Preparation of the colon was poor. - Hemorrhoids found on perianal exam. - One 22 mm polyp in the proximal ascending colon, removed with a cold biopsy forceps. Polyp resection was incomplete, and the resected tissue was partially retrieved. Clip was placed. - One 12 mm polyp at the hepatic flexure, removed using injection-lift and a hot snare. Resected and retrieved. Clip was placed. - Diverticulosis in the sigmoid colon and in the descending colon. Recommendation: - Discharge patient to home. - Resume previous diet. - Continue present medications. - Repeat colonoscopy in 1 year for surveillance based on pathology results. - Telephone my office for pathology results in 1 week. None of the findings would appear to be large enough to explain the CT findings Procedure Code(s): --- Professional --- 39143, Colonoscopy, flexible; with removal of tumor(s), polyp(s), or other lesion(s) by snare technique 59932, 59, Colonoscopy, flexible; with biopsy, single or multiple 43761, Colonoscopy, flexible; with directed submucosal injection(s), any substance Diagnosis Code(s): --- Professional --- K64.9, Unspecified hemorrhoids D12.2, Benign neoplasm of ascending colon D12.3, Benign neoplasm of transverse colon (hepatic flexure or splenic flexure) K57.30, Diverticulosis of large intestine without perforation or abscess without bleeding R93.3, Abnormal findings on diagnostic imaging of other parts of digestive tract CPT copyright 2017 [employer]. All rights reserved. The codes documented in this report are preliminary and upon computer language coder review may be revised to meet current compliance requirements. Hudson Clarke MD 08/22/2021 10:26:25 AM This report has been signed electronically. Number of Addenda: 0 Note Initiated On: 08/22/2021 9:36 AM
--- NOTE | 2021-08-22 10:27 | OP.CCLET_ITS ---
08/22/2021 Edilberto Hough Re : Colonoscopy procedure for Maritza Sanchez Dear Dr. Hough This procedure was performed on Sunday, August 22, 2021. My impressions and recommendations are as follows: Impressions : - Preparation of the colon was poor. - Hemorrhoids found on perianal exam. - One 22 mm polyp in the proximal ascending colon, removed with a cold biopsy forceps. Polyp resection was incomplete, and the resected tissue was partially retrieved. Clip was placed. - One 12 mm polyp at the hepatic flexure, removed using injection-lift and a hot snare. Resected and retrieved. Clip was placed. - Diverticulosis in the sigmoid colon and in the descending colon. Recommendations : - Discharge patient to home. - Resume previous diet. - Continue present medications. - Repeat colonoscopy in 1 year for surveillance based on pathology results. - Telephone my office for pathology results in 1 week. None of the findings would appear to be large enough to explain the CT findings My findings are described in the full procedure note, which is enclosed. If I can be of further assistance, please feel free to contact me at Doctor phone number(s): Work: . Sincerely, Hudson Clarke MD 08/22/2021 10:26:25 AM This report has been signed electronically.
== END 2021-08-22 23:59 | disposition home or self-care (01) ==
LOC: EN 07:50 → AC 07:51
PROVIDERS: PCP Family Medicine; Referring Provider Family Medicine; Visit Provider Surgery
PROC: 0DJD8ZZ Inspection of Lower Intestinal Tract, Via Natural or Artificial Opening Endoscopic (ICD-10-PCS; CPT 45378; principal; 2021-08-22 08:55)
DX: D12.0 Benign neoplasm of cecum (principal); I48.91 Unspecified atrial fibrillation; D12.3 Benign neoplasm of transverse colon; K57.30 Diverticulosis of large intestine without perforation or abscess without bleeding; K64.9 Unspecified hemorrhoids; I10 Essential (primary) hypertension; E78.00 Pure hypercholesterolemia, unspecified; M19.90 Unspecified osteoarthritis, unspecified site; Z79.01 Long term (current) use of anticoagulants; Z96.642 Presence of left artificial hip joint; Z79.899 Other long term (current) drug therapy; Z85.43 Personal history of malignant neoplasm of ovary; Z90.722 Acquired absence of ovaries, bilateral
CPT/HCPCS: 45385; 45380; 45381; 87426; 88305; J7120; J2405

== ENCOUNTER → 2024-09-24 | Outpatient (CLI) | payer MEDICARE, SELFPAY ==
--- NOTE | 2024-09-24 11:30 | RAD_ITS ---
EXAM: XR Left Hip With Pelvis When Performed, 2 or 3 Views CLINICAL INDICATION: OA TECHNIQUE: Two or three views of the left hip with pelvis when performed. COMPARISON: No relevant prior studies available. FINDINGS: BONES/JOINTS: Moderate degenerative change of the left hip with joint. Total right hip replacement. Intact hardware. Anatomic position. No acute fracture. No dislocation. SOFT TISSUES: Unremarkable. RAD/HIP, UNI W/ Pelvis 2-3 Views IMPRESSION: Degenerative changes as above. Reading Location: [facility]
== END | disposition home or self-care (01) ==
LOC: RAD 11:21
PROVIDERS: PCP Family Medicine; Referring Provider Anesthesiology Pain Medicine; Visit Provider Anesthesiology Pain Medicine
DX: M16.12 Unilateral primary osteoarthritis, left hip (principal)
CPT/HCPCS: 73502